=== PATIENT | male | born 1990 ===

== ENCOUNTER 2017-03-06 04:19 | Inpatient (IN) | payer MEDICAID, OTHER ==
[~2017-03-06] VITALS: Ht 182.9 cm; Wt 77.0 kg
[2017-03-06] MEDS ORDERED: Benzocaine-Menthol Lozenge 2/Pkg PO PRN (06:10)
[2017-03-06] MEDS ORDERED: Magnesium Hydroxide 10 mL Oral Concentration PO PRN (06:10)
[2017-03-06] MEDS ORDERED: Alum-Mag Hydrox-Simeth 30 mL Suspension PO PRN (06:10)
--- NOTE | 2017-03-06 06:10 | NUR ---
admit note nursing 11-7 this is a 25 year old male who was brought to [facility] by his mother after making a 7 cm cut to left wrist. he was medically cleared, wound sutured and dressed, evaluated and detained as a danger to self. he has deteriorated over the last 4-5 months with decreased eating and sleeping, delusions about the neighbors, hiding knifes, statements about being . he has recently started risperidone and is seeing dr. drew. has had counseling with [facility] that stopped 6 months ago. recent use of mushrooms, lsd and ecstasy. physical assessment- denies any acute medical/physical injury/need and none is apparent. a/ox3, nkda, vs-wnl, ht=72" ew=791 lbs. dressing on left forearm is intact and without drainage completed the admission process, agreed to no self harm, searched, briefly oriented to the unit/program, given bed 227 and is resting quietly in bed. will be assessed q 15 minutes. silvia
[2017-03-06] MEDS ORDERED: RISP1TAB3 PO (07:03)
--- NOTE | 2017-03-06 13:47 | NUR ---
Nursing Note [id number] Behavior, Mood S/O: Pt has good appetite. Conversation tracking clear & organized with normal rate & rhythm. Affect is slightly sad. Pt states he is "feeling better" today. He is requesting to see the psychiatrist today. Pt showered. Dressing changed on forearm. Davon dry & intact. No s/sx infection. Edges of wound are well approximated. A: Pt appears to be more depressed than he is stating. P: Provide supportive environment. Monitor medications & effects.
--- NOTE | 2017-03-06 13:50 | HP ---
[address] [address] HISTORY AND PHYSICAL PATIENT: RACHAEL GAMA : 1990 MR#: [id number] ADMIT: 03/06/2017 JOB ID: [id number] IDENTIFICATION OF PATIENT: The patient is a 27-year-old male who reportedly was admitted via transfer from [facility] under ANA status due to a significant suicide attempt including laceration to his left forearm. CHIEF COMPLAINT: "I have been feeling more depressed lately, it had come to a crisis point, I am feeling more disconnected from my friends and family." This is per patient report. HISTORY OF PRESENT ILLNESS: As stated above, the patient identified that he was placed on a detainment through the emergency department after self laceration requiring six sutures. He reports that he was struggling with significant suicidal thoughts as well as significant difficulties with internal preoccupation and disorganized thoughts. He indicates that he describes the thoughts almost as if it were Tourette's, and was very apologetic identifying that he was having various racial slurs and negative comments that occur spontaneously. He indicated that he is not that type of person and indicated that it is very alarming. In reviewing his previous history, he reportedly does have a prior history of involvement with an outpatient therapist and is currently involved with a nurse practitioner, Bartolome Ramsey, for medication management. Per report, the patient had indicated to nurses that he had been using mushrooms, LSD and Ecstasy; however on interview with myself, indicated that he had not use so since his early 20s. He does indicate however that he does use moderate amounts of marijuana smoking 3-4 times per week. He indicates that he has been struggling with increasing difficulties with paranoia, delusions about his neighbors, evidently has been struggling with decreased appetite with resultant weight loss, decrease sleep, difficulties with concentration. He recently lost his job and moved back into the family home. 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 He reports that his parents were fine with him moving back in and there were minor adjustments. He indicated that his mother is a high school social studies teacher and that his father is a nurse practitioner involved with family practice and has his own practice in [place]. PAST MEDICAL HISTORY: Substantial for no reported allergies to medications. Medications of current include none. He reports that he was prescribed Risperdal approximately one month ago at 1 mg but indicated that he is no longer taking it. He denies any other medical issues. I have reviewed the record from [facility] and agree with findings. PAST PSYCHIATRIC HISTORY: Substantial for the above information. He denies any prior interventions of hospitalizations. SOCIAL HISTORY: As noted above. The patient lives in the home with the parents. He does have a sibling brother age 24 who also lives in the home environment. He indicates that he has been involved in long-term relationships in the past but nothing of current. He admits to the above marijuana usage. He admits to occasional beer periodically. Abuse history was not reviewed. FAMILY HISTORY: Positive for history of counseling in an uncle and in his mother. He denies any knowledge of medication management. DEVELOPMENTAL HISTORY: The patient indicated that he graduated from [employer] and was pursuing a degree in [employer]. Lived in [facility] for approximately a year and a half and later transferred to [employer] [facility] for school. He indicates that he has not yet obtained his bachelor's. MENTAL STATUS EXAMINATION: General appearance: The patient is very articulate. Maintains good eye contact throughout. Very apologetic in reference to his current disorganization of thought. His speech is of normal tone, frequency, and volume. There is significant latency throughout with appearance of visual tracking. His mood is depressed. His affect is congruent. His thought process shows some evidence of loose and disorganized thinking. He reports feeling as if he has Tourette's of the brain and identified that he is having difficulties with negative perceptual thoughts of racism which is alarming to him. Thought content, he openly admitted to significant suicidal thoughts last evening and indicated that he cut on this wrist. He expresses significant regret and remorse. There is no evidence of homicidal ideation. He denies any active hallucinations. No evidence of delusions but significant paranoia per his own report. He was alert, oriented to time and place, situation. His attention and concentration are fleeting. Memory is intact in the short-term, long-term, recent. Insight and judgment are fair. IMPRESSION: AXIS I: 1. Major depressive disorder, recurrent type with psychotic features. 2. Cannabis use disorder. 3. Rule out substance abuse psychoses. AXIS II: Deferred. AXIS III: None. AXIS IV: Stressors are noted for ineffective coping, significant substance use issues. AXIS V: Global Assessment of Functioning, current 30. PLAN: 1. Recommendations for introductions of Zyprexa scheduled 10 mg q.h.s., Zyprexa Zydis 10 mg q.6 p.r.n. for agitation. 2. Continuation of Vistaril 50 mg q.4 h. p.r.n. 3. Continuation of Ativan 1 mg q.4 h. p.r.n. 4. Recommendations for the patient to sign in on a voluntary basis based on his current presentation. I do feel that he would benefit from continued hospitalization but do not have grounds to pursue commitment hearing. The patient has agreed and staff will be informed to fill out the application accordingly.
[2017-03-06 14:55] VITALS: BP 112/72; PULSE 72; RESP 18
[2017-03-06] MEDS: LORazepam 1 mg Tablet PO PRN (19:41)
[2017-03-06] MEDS: OLANZapine Zydis ODT 5 mg Tablet PO SCH (21:16)
--- NOTE | 2017-03-06 22:22 | NUR ---
nursing:Pt has been cooperative, pleasant and some interactions with his peers; Is fairly logical and linear; When asked about his SA: "Oh that was impulsive and I regretted it after.I was just being egged on in my head...I was just causing alot of problems for my friends and family....I need to get to the point where I'm more in control of my mind...sometimes it tries to pull me off track.." He does deny any recent use of hallucinations: "Not for at least 6 months. It's rare for me to use illegal drugs. " He says he recently was referred to a psychiatrist 3 months ago and started Risperidol but has only been on it briefly and doesn't know if it has helped much. His incision is clean and intact without reddness and he denies any significant pain.
--- NOTE | 2017-03-07 05:12 | NUR ---
nursing, nights, 11-7 s/o- has appeared to sleep after 2114 during q 15 minute assessments. a- no apparent distress. p- monitor behavior/emotional state, quality, times and amount of sleep, use and effect of medication. silvia
--- NOTE | 2017-03-07 09:52 | NUR ---
Nursing Day Pt agitated when lab came for a blood draw this morning. However, he did allow the blood draw. He was able to calm and took morning medications without difficulty. He refused his nicotine patch stating "I don't need it. I don't even smoke." Pt ate breakfast and spending the rest of the morning in bed. Pt remains isolative and unable to tolerate activity on the unit, easily overstimulated. Addendum: 03/07/17 at 0958 by ADELINE SALDIVAR RN ERROR DOCUMENTED ON WRONG PATIENT.
[2017-03-07 10:08] VITALS: BP 109/77; PULSE 69; RESP 16
--- NOTE | 2017-03-07 10:25 | NUR ---
Nursing Day Pt arouses to name. He did not eat breakfast and has remained asleep through the morning. Will continue to monitor mood, behavior and safety on the unit.
--- NOTE | 2017-03-07 15:18 | PCM.PNPSY ---
Subjective Date of Service Mar 07, 2017 Subjective I spent 30 minutes both revealing treatments upon with our clinic team, interviewing the patient and providing supportive/educational psychotherapy. I spent more than 50% of the time counseling the patient. I reviewed the treatment plan with the patient and discuss options available including the potential risks, benefits and side effects. Patient report an improvement in thought organization and stability. Staff report that he has been active and participating well in the one-on-one and group activities. Patient has slept 7 hours and denies any manic or psychotic symptoms on review. Patient still reports mild depressions. Patient admitted that hurting himself was a desperate act of stupidity. He states that since coming back from [place] to [place], the home coming was not as expected. Pt reports that his parents as to 2-3 years ago and that he is not as close as family as before. Patient has not identified any particular trigger that has caused his significant depression and suicidal attempt. Though he did states significant life stressors that has been building inside. The current [facility] political climate has not helped his stress for the past year. Patient does states that he has friends and family he can turn to should he have suicidal ideation. He currently denies any suicidal or homicidal ideation. He denies medication side effects. He was able to identify he medication and what they were used to treat. Current Medications Current Medications Lorazepam 1 mg Q4H PRN PO Last administered on 03/06/17t 19:41; Admin Dose 1 MG ; Start 03/06/17 at 06:10 Olanzapine 10 mg HS PO Last administered on 03/06/17 21:16; Admin Dose 10 MG; Start 03/06/17 at 21:00 Mental Status Exam Appearance: Unkept Attitude: Cooperative Behavior: No unusual behavior Affect: Blunted Mood: Dysthymic Thought Process/Associations: Logical/Sequential Speech Production: Normal Speech Rate: Normal Speech Articulation: Normal Thought Content: Negativistic Danger to Self/Suicidal Ideati: None Danger to Others: None Delusions: Thought Insertion (Denies) Hallucinations: Auditory (Denies), Visual (Denies) Consciousness: Alert Orientation: Person, Place, Date Memory: Grossly Intact Estimate Intellectual Function: Average Basis for IQ estimate: Awareness current events Attention/Concentration & Cogn: Grossly Intact Mental Health Plan Patient is a 27-year-old male with a medical history significant for past polysubstance abuse, currently marijuana, paranoia, and depression presents to the ED with suicidal attempt. Patient has lacerated his right wrist. Currently on a 72.hour ANA. Today, patient denies any suicidal ideation. Prior, patient likely had increasing stress with poor coping skills which led to his suicide attempt. Try to elicit a summary judgment in addition to 2+2. Patient was unable to identify risk factor that led to suicidal attempt. Though he does states having friends and family to call should he does have suicidal ideation. [place] AXIS I: 1. Major depressive disorder, recurrent type with psychotic features. 2. Cannabis use disorder. 3. Rule out substance abuse psychoses. AXIS II: Deferred. AXIS III: None. AXIS IV: Stressors are noted for ineffective coping, significant substance use issues. AXIS V: Global Assessment of Functioning, current 30. Medications Medications to address General Physical Health Zyprexa 10 mg at bedtime Treatments 1. The patient is admitted to the [facility] on a 72 hour ANA 2. The patient will be seen by the treatment team on a daily basis to assess for symptom side effects and response to treatment. 3. The patient will be encouraged to attend group and milieu activities. 4. The patient is currently denying suicidal or homicidal ideation and is not in need of a one-to-one at this time. 5. Continue Zyprexa scheduled 10 mg q.h.s., Zyprexa Zydis 10 mg q.6 p.r.n. for agitation. 6. Continuation of Vistaril 50 mg q.4 h. p.r.n. 7. Continuation of Ativan 1 mg q.4 h. p.r.n. 8. Anticipate length of stay less than 7 days. Shaka Jensen DO Mar 07, 2017 15:18
--- NOTE | 2017-03-07 19:42 | NUR ---
Fitter Helper/Counselor: S: "My dad called me today." O: Patient slept 8.75 hours last night per staff. Patient denies S/I and H/I. He also denies auditory and visual hallucinations. Depression is 0/10 and anxiety is 0/10. When asked his mood, patient stated, "Good and relaxed." This technical report writer spoke with patient's mother, Luisa, with permission of patient, mother was given an update. This technical report writer attempted to call patient's father, Liam, but father provided his work/office number and the office was closed by the time this technical report writer attempted to call father. A: Patient is cooperative, unkept, blunted affect, dysthymic, poor insight, poor judgment. P: Follow the care plan, coordinate with out-patient providers.
[2017-03-07] MEDS: OLANZapine Zydis ODT 5 mg Tablet PO SCH (20:52)
[2017-03-07] MEDS: LORazepam 1 mg Tablet PO PRN (20:53)
--- NOTE | 2017-03-07 21:24 | NUR ---
Observations 00 - 0 Pt affect and mood was isolative, guarded and withdrawn. Pt was pleasant, polite and cooperative when approached. Pt maintained behavior throughout the shift. Pt was unsocial and mostly keeps to himself. Pt attended meals in D.R. and ate 100% of his meals. Pt was in his room and in bed most of the shift. Pt was observed every 15 minutes through the shift as ordered.
--- NOTE | 2017-03-08 06:28 | NUR ---
Nursing Note- Crown Wheel Assembler 7pm to 7am Pt asleep at start of shift, did not get up for snack. Pt woke up to take HS meds. He declined night time Zyprexa stating I took it last night and it made me drowsy all day. Pt reported anxiety 02/27 and requested Ativan 1mg po prn, which he received and went back to sleep with no broken sleep during the night. Monitored pt. q 15 minutes for safety, location, and accountability
[2017-03-08 08:56] LABS: Mean Corpuscular Hemoglobin 29.8 pg (27.0-35.0); Mean Corpuscular Volume 87.8 fL (81-100)
[2017-03-08] MEDS: LORazepam 1 mg Tablet PO PRN ×2 (10:52→17:36)
--- NOTE | 2017-03-08 12:56 | NUR ---
day shift nursing note S/O-"I need information about the meds I am on." Pt. was provided medication information sheets. He would not tell typewriter assembly and parts inspector why he cut his wrist. Left wrist area clean with christi dry and intact without any signs of infection. Pt.stated the area does not hurt unless he lifts something with his wrist. He would not tell typewriter assembly and parts inspector what happened to his wrist and said it was probably in his medical records. He denies hallucinations, SI, HI or depression. He reported he was worried about the cost of being in the hospital. He appears guarded, withdrawn and isolative. He requested and was given 1 mg. of Ativan at 1052 PO prn for anxiety. Pt. denied anxiety however appeared anxious and was diaphoretic. He is pleasant with staff does not interact with his peers. A-Psychosis. Lack of insight. Poor judgment. P-Monitor for safety per protocol. Assess efficacy of meds to decrease psychosis. Encourage engagement with peers.
[2017-03-08] MEDS: OLANZapine Zydis ODT 5 mg Tablet PO PRN (17:36)
--- NOTE | 2017-03-08 17:58 | NUR ---
Observations 0700 - 1900 Pt affect and mood was isolative, guarded and withdrawn. Pt was pleasant, polite and cooperative when approached. Pt maintained behavior throughout the shift. Pt was unsocial and mostly keeps to himself. Pt attended meals in D.R. and ate 100% of his meals. Pt was in his room and in bed most of the shift. Pt was wanting to go home. RN and doctor was notified. Pt played some ping pong with peer and went out on patio to get some fresh air. Pt visited with his Dad during visitation and it appeared to go well. Pt was observed every 15 minutes through the shift as ordered.
[2017-03-08] MEDS: OLANZapine Zydis ODT 5 mg Tablet PO SCH (21:00)
--- NOTE | 2017-03-09 05:58 | NUR ---
nursing, nights, 11-7 s/o- has appeared to sleep after 2100 during q 15 minute assessments. a- no apparent distress. p- monitor behavior/emotional state, quality, times and amount of sleep, use and effect of medication. silvia
[2017-03-09] MEDS: LORazepam 1 mg Tablet PO PRN ×3 (12:05→22:26)
[2017-03-09 14:03] VITALS: BP 119/80; PULSE 86; RESP 16
--- NOTE | 2017-03-09 18:26 | PCM.PNPSY ---
Subjective Date of Service Mar 08, 2017 Subjective Almost 2 hours were spent initially talking with the patient, referring the patient to the [facility] and discussing case and follow-up family meeting. The patient had declined olanzapine stating that he did not need sleeping medications. He further stated that he was "admitted voluntarily and plans to stay with his parents." Today, the patient is requesting to be discharged. He is unable to say why he cut his wrist other than "it was my birthday." He stated he would not harm himself again but still could not say why it occurred in the first place. The patient evidenced significant thought disorder with latency and difficulty answering questions in anything other than superficial terms. We discussed the seriousness of his attempt and the need for appropriate follow-up and medication but the patient stated he has an appointment scheduled for next and does not see the need for further inpatient treatment. The patient was advised that he would be referred to the [facility] who may come to assess him and was advised to discuss his current situation with his parents as to whether they felt he was well enough to return home and the patient responded, "Oh, so I should call them to come pick me up?" Given the seriousness of his attempt and his lack of insight and treatment and the parents report of ongoing delusions, he was referred to the [facility]. He ultimately agreed voluntarily. Sleep: 8.25 hours Appetite: "Quite good" Suicidal and homicidal ideation: Denies Auditory hallucinations: Denies Visual hallucinations: Denies Other Psychotic Symptoms: As above Anxiety: 1-2/10 Depression: 0/10 Current Medications Current Medications Olanzapine 10 mg HS PO Last administered on 03/06/17t 21:16; Admin Dose 10 MG; Start 03/06/17 at 21:00 Mental Status Exam Appearance: Unkept Attitude: Cooperative Behavior: No unusual behavior Affect: Blunted Mood: Dysthymic Thought Process/Associations: Logical/Sequential Speech Production: Normal Speech Rate: Normal Speech Articulation: Normal Thought Content: Negativistic Danger to Self/Suicidal Ideati: None Danger to Others: None Delusions: Thought Insertion (Denies) Hallucinations: Auditory (Denies), Visual (Denies) Consciousness: Alert Orientation: Person, Place, Date Memory: Grossly Intact Estimate Intellectual Function: Average Basis for IQ estimate: Awareness current events Attention/Concentration & Cogn: Grossly Intact Insight: Limited Judgement: Poor Result Diagram: 03/08/1779903/08/17 08 Mental Health Plan Patient is a 27-year-old male with a medical history significant for past polysubstance abuse, currently marijuana, paranoia, and depression presents to the ED with suicidal attempt. Patient has lacerated his right wrist. The patient had been admitted on a 72 hour ANA, no 14 day order was filed and he was converted to a voluntary patient. He has subsequently stopped taking recommended medications and is requesting discharge. He is unable to articulate why he harmed himself or how he would remain safe. He was therefore referred to the [facility]. Given the seriousness of his attempt, his lack of insight, and medication non- adherence in an inpatient and outpatient setting, he is at high risk for impulsive acts which could result in harm to self should he be released before an adequate discharge plan can be formulated. The patient is in need of further inpatient hospitalization and treatment. The patient ultimately agreed with this with [facility] and family intervention. [place] AXIS I: 1. Major depressive disorder, recurrent type with psychotic features versus schizoaffective disorder. 2. Cannabis use disorder. 3. Rule out substance induced psychoses. AXIS II: Deferred. AXIS III: None. AXIS IV: Psychosocial stressors include limited insight, poor coping skills, and significant substance use. AXIS V: Global Assessment of Functioning, current 30. Treatments 1. The [facility] on a 72 hour ANA and is now a voluntary patient. 2. The patient will be seen by the treatment team on a daily basis to assess for symptom side effects and response to treatment. 3. The patient will be encouraged to attend group and milieu activities. 4. The patient is currently denying suicidal or homicidal ideation and is not in need of a one-to-one at this time. 5. Continue Zyprexa scheduled 10 mg q.h.s., Zyprexa Zydis 10 mg q.6 p.r.n. for agitation. 6. Continuation of Vistaril 50 mg q.4 h. p.r.n. 7. Continuation of Ativan 1 mg q.4 h. p.r.n. 8. The patient was referred to the designated mental health professional but subsequently agreed to remain as a voluntary patient. 9. Anticipate length of stay less than 7 days. Eusebio Gambino MD Mar 08, 2017 19:05
--- NOTE | 2017-03-09 18:31 | PCM.PNPSY ---
Subjective Date of Service Mar 09, 2017 Subjective The patient was noted to be playing plan just prior to interview. He was reporting that he was not having any difficulty with medications and that he was "getting my focus back without distractions." He would not clarify with distractions were but appeared to indicate they were internal thoughts. He denied side effects from medications. Sleep: 9 hours. "Sound" Appetite: Normal, "getting my appetite back." Suicidal and homicidal ideation: He denied both stating he would not as "you are part of what you care about." Auditory hallucinations: Denies Visual hallucinations: Denies Other Psychotic Symptoms: Denies thought control Anxiety: "Really really low" 1-10/28 Depression: 0/10 Mental Status Exam Vital Signs Vital Signs Date Time Temp Pulse Resp B/P Pulse Ox O2 Delivery O2 Flow Rate FiO2 03/09/17 14:03 36.3 86 16 119/80 Appearance: Unkept Attitude: Cooperative Behavior: No unusual behavior Affect: Restricted Mood: Dysthymic Thought Process/Associations: Logical/Sequential Speech Production: Normal Speech Rate: Normal Speech Articulation: Normal Thought Content: Negativistic Danger to Self/Suicidal Ideati: None Danger to Others: None Delusions: Thought Insertion (Denies) Hallucinations: Auditory (Denies), Visual (Denies) Consciousness: Alert Orientation: Person, Place, Date Memory: Grossly Intact Estimate Intellectual Function: Average Basis for IQ estimate: Awareness current events Attention/Concentration & Cogn: Grossly Intact Insight: Limited Judgement: Limited Result Diagram: 03/08/17 0800 03/08/17 0800 Mental Health Plan Patient is a 27-year-old male with a medical history significant for past polysubstance abuse, currently marijuana, paranoia, and depression presents to the ED with suicidal attempt. Patient has lacerated his right wrist. The patient had been admitted on a 72 hour ANA, no 14 day order was filed and he was converted to a voluntary patient. He has subsequently stopped taking recommended medications and is requesting discharge. He is unable to articulate why he harmed himself or how he would remain safe. He was therefore referred to the [facility]. The patient subsequently agreed to stay as a voluntary. He reports that his symptoms have improved and she is thinking more clearly with medication. He reported having a good visit with family. We discussed discharge early next week with outpatient follow-up and the patient was agreeable. [place] AXIS I: 1. Psychotic disorder unspecified versus schizoaffective disorder. 2. Cannabis use disorder. AXIS II: Deferred. AXIS III: None. AXIS IV: Psychosocial stressors include limited insight, poor coping skills, and significant substance use. AXIS V: Global Assessment of Functioning, current 35. Medications Medications to address General Physical Health Zyprexa 10 mg at bedtime Treatments 1. The patient is admitted to the [facility] initially on a 72 hour ANA and is now a voluntary patient. 2. The patient will be seen by the treatment team on a daily basis to assess for symptom side effects and response to treatment. 3. The patient will be encouraged to attend group and milieu activities. 4. The patient is currently denying suicidal or homicidal ideation and is not in need of a one-to-one at this time. 5. Continue Zyprexa scheduled 10 mg q.h.s., Zyprexa Zydis 10 mg q.6 p.r.n. for agitation. 6. Continuation of Vistaril 50 mg q.4 h. p.r.n. 7. Continuation of Ativan 1 mg q.4 h. p.r.n. 8. Anticipate length of stay less than 7 days. Eusebio Gambino MD Mar 09, 2017 18:31
--- NOTE | 2017-03-09 18:37 | NUR ---
Observations [id number] Pt friendly, cooperative, and communicative with peers and staff. He slept much of the morning, but did attend Community Meeting and participated in group activities. Pt spent much of the afternoon playing the piano. Pt attended all meals, eating 100%. Pt did not shower on this shift. He was observed every 15 minutes of shift as directed.
--- NOTE | 2017-03-09 20:04 | NUR ---
Nurses Note Evening Patient has been occupying himself with playing the piano, napping on and off and visiting with his father. Patients' affect has been brighter but has had periods of increased anxiety requiring Ativan 1mg at 1750 with lessened anxiousness. Patient was eager to hear learn about his scheduled medications purpose and effects. Will maintain q 15min for safety and support. Addendum: 03/09/17 at 2011 by DEEDEE TOUSSAINT RN Amended: Links added. Addendum: 03/09/17 at 2227 by ADELINE SALDIVAR RN Prn Ativan 1mg po requested and received prior to bed for felt anxiety. Will assess medication efficacy through the night.
[2017-03-09] MEDS: OLANZapine Zydis ODT 5 mg Tablet PO SCH (21:22)
--- NOTE | 2017-03-10 05:05 | NUR ---
Nursing Note Learning Manager 7pm to 7am Pt asleep at start of shift and remained asleep for the duration of the shift Monitor pt q 15 minutes for safety, location and accountability
[2017-03-10 11:45] VITALS: BP 126/75; PULSE 94; RESP 16
--- NOTE | 2017-03-10 13:11 | NUR ---
nursing note day shift S)"I was feeling great this morning but now I am getting more anxious, I want to stay calm" O) pt requesting anti-anxiety medication states he wants to do well today, 01/27 anxiety lowering after PRN medication 09/27, states is very happy he is playing piano "its has been one of my fears" reports that he thinks he can go up on his medication "I believe it is at a low dose" ate meals, took shower, groomed in own clothes A) cooperative, requested medication for anxiety, pleasant P) monitor mediation effectiveness and encourage participation in treatment
[2017-03-10] MEDS: LORazepam 1 mg Tablet PO PRN ×2 (16:30→22:00)
--- NOTE | 2017-03-10 16:32 | NUR ---
Calender Worker Helper/Counselor S: "Can we go outside soon?" O: Patient denies any SI or HI, no AVH, stated that his anxiety was lower than this morning, and no rating on depression. A: Patient has been out on the milieu, and has been in the piano room playing the piano. He has been friendly with staff and other patients. P: Follow care plan and coordinate with outpatient providers.
--- NOTE | 2017-03-10 16:51 | PCM.PNPSY ---
Subjective Date of Service Mar 10, 2017 Subjective The patient reports that olanzapine has been effective in helping him to relax. He states he is less worried now about "who likes me and who does not. It makes me want to try to play the piano... it is easier to block out other thoughts." He reported some concern that when he returns to his neighborhood the neighbors will be "shouting at me again." He also reported walking by neighbors who stated "we do not do that here." He believes they are talking about smoking. The patient was advised to be aware that this may be a hallucination and to check with others with him if they hear the same thing or to look at their mouth to see if it corresponded to the words being spoken. The patient thought that was a good idea. He denies side effects. The patient showered today and no longer smells strongly of body odor. Sleep: 6.25 hours sleep, "no more hellish dreams like at home." Appetite: "Good" Suicidal and homicidal ideation: Denies Auditory hallucinations: Denies Visual hallucinations: Denies Other Psychotic Symptoms: As above Anxiety: 0/10 Depression: 0/10 Mental Status Exam Vital Signs Vital Signs Date Time Temp Pulse Resp B/P Pulse Ox O2 Delivery O2 Flow Rate FiO2 03/10/17 11:45 36.3 94 16 126/75 Appearance: Neat/well groomed Attitude: Pleasant, Cooperative Behavior: No unusual behavior Affect: Well Modulated/Appropriate Mood: Anxious (mild) Thought Process/Associations: Logical/Sequential Speech Production: Normal Speech Rate: Normal Speech Articulation: Normal Thought Content: Appropriate, Perseveration (mild) Danger to Self/Suicidal Ideati: None Danger to Others: None Hallucinations: Auditory (Denies), Visual (Denies) Consciousness: Alert Orientation: Person, Place, Date, Situation Memory: Grossly Intact Estimate Intellectual Function: Average Basis for IQ estimate: Awareness current events Attention/Concentration & Cogn: Grossly Intact Insight: Limited Judgement: Limited Result Diagram: 03/08/1779903/08/17799 Mental Health Plan Patient is a 27-year-old male with a medical history significant for past polysubstance abuse, currently marijuana, and presents to the ED with paranoia, depression and is post-suicide attempt with a laceration to his right wrist. The patient had been admitted on a 72 hour ANA, no 14 day order was filed and he was converted to a voluntary patient. He subsequently stopped taking recommended medications and was requesting discharge. He was unable to articulate why he harmed himself or how he would remain safe. He was therefore referred to the [facility]. The patient subsequently agreed to stay as a voluntary. He continues to report that his symptoms have improved and that he is thinking more clearly with medication. We discussed discharge later this week with outpatient follow-up and the patient was agreeable. [place] AXIS I: 1. Psychotic disorder unspecified versus schizoaffective disorder. 2. Cannabis use disorder. AXIS II: Deferred. AXIS III: None. AXIS IV: Psychosocial stressors include limited insight, poor coping skills, and significant substance use. AXIS V: Global Assessment of Functioning, current 35. Medications Medications to address General Physical Health Zyprexa 10 mg at bedtime Treatments 1. [facility] and is now a voluntary patient. 2. The patient will be seen by the treatment team on a daily basis to assess for symptom side effects and response to treatment. 3. The patient will be encouraged to attend group and milieu activities. 4. The patient is currently denying suicidal or homicidal ideation and is not in need of a one-to-one at this time. 5. Continue Zyprexa scheduled 10 mg q.h.s., Zyprexa Zydis 10 mg q.6 p.r.n. for agitation. 6. Continuation of Vistaril 50 mg q.4 h. p.r.n. 7. Continuation of Ativan 1 mg q.4 h. p.r.n., may need to reduce frequency. 8. Anticipate length of stay less than 7 days. Eusebio Gambino MD Mar 10, 2017 16:34
--- NOTE | 2017-03-10 19:14 | NUR ---
Observations 0900 - 2130 Pt affect and mood was friendly, social. Pt was pleasant, polite and cooperative when approached. Pt maintained behavior throughout the shift. Pt was social with staff and peers. Pt attended meals in D.R. and ate 100% of his meals. Pt was out of his room most of the shift.Pt visited with his mom during visitation, played ping pong with her and it appeared to go well. Pt played the piano during free time and stated that he is enjoying this. Pt was observed every 15 minutes through the shift as ordered.
[2017-03-10] MEDS: OLANZapine Zydis ODT 5 mg Tablet PO SCH (21:43)
--- NOTE | 2017-03-10 22:26 | NUR ---
Nurse Note Evening Shift 3pm to 11pm: Pt has been playing the piano and coloring since the beginning of the shift. Pt has been calm and keeping mostly to himself, but pleasant and appropriate when talking. Pt requested antianxiety meds at 0400 stating he was feeling anxious 8/10, but after talking, Pt stated he was feeling less anxious. Pt had a family member visit in the evening, then visited with other pts in the milieu. Pt monitored q 15 minutes for safety, location and accountability.
--- NOTE | 2017-03-11 03:49 | NUR ---
Observations 1900 to 0700 Pt attended and participated in wrap up group. Pt ate a snack. Pt was visited by mother at start of shift and they were observed playing ping pong. Pt was social with peers and played piano during the evening. Pt is pleasant and cooperative. Pt maintained behavioral control and showed no signs of abnormal behavior. Pt appeared asleep at 2300 and has remained asleep. Pt respirations were observed when asleep. Staff completed 15 min close observations as ordered.
--- NOTE | 2017-03-11 05:01 | NUR ---
Nursing Note Wage Conciliator 11pm to 7am Pt asleep at start of shift and remained asleep the duration of the shift. No issues observed or reported. Pt monitored q 15 minutes for safety, location and accountability
[2017-03-11] MEDS: OLANZapine Zydis ODT 5 mg Tablet PO PRN (12:26)
--- NOTE | 2017-03-11 13:48 | NUR ---
nurses note dayshift O)pt slept until lunch time today, showered ate meal, states he is worried he would get anxious and requested PRN anti-anxiety and Zyprexa " I want to make sure I don't get mad" playing piano out walking hallways, denies anxiety this afternoon, incision CDI except one staple is missing that he said he removed because it was loose, area is closed and healing well, staple given to this commercial lines underwriter, denies thoughts of self harm " I think music is helping me" A) cooperative, medication compliant, denies SI or depression P) monitor medication effectiveness, and monitor for safety Addendum: 03/11/17 at 1456 by WENDY KING RN steri strip placed over missing staple area CDI
[2017-03-11] MEDS: LORazepam 1 mg Tablet PO PRN (14:31)
--- NOTE | 2017-03-11 14:36 | PCM.DIMED ---
Discharge Instructions Date of Service Mar 11, 2017 Dates of Hospitalization Mar 06, 2017 at 05:52 Discharge Diagnosis Discharge Diagnosis AXIS I: 1. Psychotic disorder unspecified versus schizoaffective disorder. 2. Depressive disorder unspecified 3. Cannabis use disorder. AXIS II: Deferred. AXIS III: None. AXIS IV: Psychosocial stressors include limited insight, poor coping skills, and significant substance use. AXIS V: Global Assessment of Functioning, current 45. Test Results Test Results CBC Test 03/08/17 08:00 White Blood Count 6.4th/mm3 (3.8-10.1) Red Blood Count 4.83mil/mm3 (4.40-5.80) Hemoglobin 14.4g/dL (13.8-17.2) Hematocrit 42.4% (41.0-50.0) Mean Corpuscular Volume 87.8fL (81-100) Mean Corpuscular Hemoglobin 29.8pg (27.0-35.0) Mean Corpuscular Hemoglobin Concent 34.0% (32.0-37.0) Red Cell Distribution Width 13.0% (12.3-15.4) Platelet Count 249bil/L (150-400) CMP Test 03/08/17 08:00 Sodium Level 145mEq/L Potassium Level 4.6mEq/L Chloride Level 107mEq/L Carbon Dioxide Level 25mmol/L Blood Urea Nitrogen 14mg/dL Creatinine 0.77mg/dL Estimat Glomerular Filtration Rate 127mL/min Glucose Level 87mg/dL Calcium Level 9.7mg/dL Total Bilirubin 0.8mg/dL Aspartate Amino Transf (AST/SGOT) 14U/L Alanine Aminotransferase (ALT/SGPT) 12U/L Alkaline Phosphatase 67U/L Ammonia 59ug/dL Total Protein 7.1g/dL Albumin 4.6g/dL Diet Discharge Diet: No restrictions Activity Discharge Activity: No restrictions Patient Instructions Patient Instructions Should you have any thoughts of harming yourself or others, please call the crisis line, your provider, 911, or go to the nearest Emergency Department. Do not change or discontinue your medications without discussing with your provider. You have been given a prescription for 30 days supply of your new medication Follow-up plan Provider Erick Almodovar date/time per counselor instruction [facility], [address] [place] [address] Eusebio Gambino MD Mar 11, 2017 14:36
[2017-03-11] MEDS ORDERED: HYDR50CA3 PO (14:38)
[2017-03-11] MEDS ORDERED: OLAN10TA32 PO (14:38)
[2017-03-11] MEDS ORDERED: LORA-303 PO (14:38)
--- NOTE | 2017-03-11 14:47 | PCM.DC.MED ---
Discharge Summary Date of Service Mar 11, 2017 Dates of Hospitalization Date of Hospital Admission Mar 06, 2017 at 05:52 Date of Discharge: Mar 11, 2017 Providers: Admitting Physician: Jordi Gamez MD Primary Care Physician: Nopcarmen Attending Physician: Jordi Gamez MD Diagnosis at Time of Discharge Diagnosis at Time of Discharge AXIS I: 1. Psychotic disorder unspecified versus schizoaffective disorder. 2. Depressive disorder unspecified 3. Cannabis use disorder. AXIS II: Deferred. AXIS III: None. AXIS IV: Psychosocial stressors include limited insight, poor coping skills, and significant substance use. AXIS V: Global Assessment of Functioning, current 45. Brief History Per Dr. Urrutia H&P: IDENTIFICATION OF PATIENT: The patient is a 27-year-old male who reportedly was admitted via transfer from [facility] under ANA status due to a significant suicide attempt including laceration to his left forearm. CHIEF COMPLAINT: "I have been feeling more depressed lately, it had come to a crisis point, I am feeling more disconnected from my friends and family." This is per patient report. HISTORY OF PRESENT ILLNESS: As stated above, the patient identified that he was placed on a detainment through the emergency department after self laceration requiring six sutures. He reports that he was struggling with significant suicidal thoughts as well as significant difficulties with internal preoccupation and disorganized thoughts. He indicates that he describes the thoughts almost as if it were Tourette's, and was very apologetic identifying that he was having various racial slurs and negative comments that occur spontaneously. He indicated that he is not that type of person and indicated that it is very alarming. In reviewing his previous history, he reportedly does have a prior history of involvement with an outpatient therapist and is currently involved with a nurse practitioner, Bartolome Ramsey, for medication management. Per report, the patient had indicated to nurses that he had been using mushrooms, LSD and Ecstasy; however on interview with myself, indicated that he had not use so since his early 20s. He does indicate however that he does use moderate amounts of marijuana smoking 3-4 times per week. He indicates that he has been struggling with increasing difficulties with paranoia, delusions about his neighbors, evidently has been struggling with decreased appetite with resultant weight loss, decrease sleep, difficulties with concentration. He recently lost his job and moved back into the family home. 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 He reports that his parents were fine with him moving back in and there were minor adjustments. He indicated that his mother is a highway truck driver and that his father is a nurse practitioner involved with family practice and has his own practice in [place]. Hospital Course The patient was admitted to the mental health unit. The patient was initially detained on a 72 hour hold, but was agreeable to inpatient hospitalization and so was converted to a voluntary status. The patient subsequently stopped taking olanzapine which had been prescribed for psychosis and mood. On FridayMarch 08, the patient requested discharge. He was unable to say why he cut his wrist other than it was "my birthday." He stated he would not harm himself again but still could not say why it occurred in the first place. The patient evidenced significant thought disorder with latency and difficulty answering questions in anything other than superficial terms. We discussed the seriousness of his attempt and the need for appropriate follow-up and medication but the patient stated he has an appointment scheduled for next and does not see the need for further inpatient treatment. The patient was advised that he would be referred to the [facility] who may come to assess him and was advised to discuss his current situation with his parents as to whether they felt he was well enough to return home and the patient responded, "Oh, so I should call them to come pick me up?" The patient was subsequently seen by the [facility] with his father present and he agreed to stay in the hospital and take prescribed medications and so was not detained. The patient reported a significant improvement in his thought processes and he felt that things which have bothered him such as bad thoughts were not so bothersome. He also had improved clarity of thought. The patient was still concerned that neighbors may yell at him upon his return to his father's apartment building. It appeared that these may be auditory hallucinations or distortions but this could not be said with certainty. He was advised to check with others when he heard auditory unusual comments. On the day of discharge he stated that he was "just fine" and denied any side effects to medications. He stated that it was easier to focus. Sleep was reported as "feeling refreshed in the morning." 7 hours per staff. Appetite was not reported as "normal." He reported his anxiety was "pretty low" and he reported his depression as "some vestiges of depression in my head." He denied auditory or visual hallucinations, paranoia, and any thoughts, intent, or plan of hurting himself or others. There was some questionable insight when he stated that he felt the olanzapine made him too drowsy at night and implied that he may not take it. We discussed potentially reducing the dose and staying a little longer and he stated, "no medications are fine. I will take them as prescribed by my doctor." Exam Vital Signs (Last) Date Time Temp Pulse Resp B/P Pulse Ox O2 Delivery O2 Flow Rate FiO2 03/10/17 11:45 36.3 94 16 126/75 Exam Discharge Mental Status Exam Appearance: Neat/well groomed Attitude: Pleasant, Cooperative Behavior: No unusual behavior Affect: Well Modulated/Appropriate Mood: Anxious (mild) Thought Process/Associations: Logical/Sequential Speech Production: Normal Speech Rate: Normal Speech Articulation: Normal Thought Content: Appropriate Danger to Self/Suicidal Ideation: None Danger to Others: None Hallucinations: Auditory (Denies), Visual (Denies) Consciousness: Alert Orientation: Person, Place, Date, Situation Memory: Grossly Intact Estimate Intellectual Function: Average Basis for IQ estimate: Awareness current events Attention/Concentration & Cognition: Grossly Intact Insight: Fair Judgement: Fair Test 03/08/17 08:00 White Blood Count 6.4th/mm3 (3.8-10.1) Red Blood Count 4.83mil/mm3 (4.40-5.80) Hemoglobin 14.4g/dL (13.8-17.2) Hematocrit 42.4% (41.0-50.0) Mean Corpuscular Volume 87.8fL (81-100) Mean Corpuscular Hemoglobin 29.8pg (27.0-35.0) Mean Corpuscular Hemoglobin Concent 34.0% (32.0-37.0) Red Cell Distribution Width 13.0% (12.3-15.4) Platelet Count 249bil/L (150-400) Sodium Level 145mEq/L (134-144) Potassium Level 4.6mEq/L (3.5-5.2) Chloride Level 107mEq/L (97-108) Carbon Dioxide Level 25mmol/L (18-29) Blood Urea Nitrogen 14mg/dL (6-20) Creatinine 0.77mg/dL (0.76-1.27) Estimat Glomerular Filtration Rate 127mL/min (>59) Glucose Level 87mg/dL (60-99) Calcium Level 9.7mg/dL (8.5-10.1) Total Bilirubin 0.8mg/dL (0.0-1.2) Aspartate Amino Transf (AST/SGOT) 14U/L (0-50) Alanine Aminotransferase (ALT/SGPT) 12U/L (0-44) Alkaline Phosphatase 67U/L (25-150) Ammonia 59ug/dL (18-53) Total Protein 7.1g/dL (6.4-8.4) Albumin 4.6g/dL (3.4-5.0) Discharge Medications Discharge Medications Olanzapine ODT (Olanzapine ODT) 10 Mg Tablet 10 MG PO HS Prescribed by: SACHA GAMBINO MD As needed Hydroxyzine Pamoate (HydrOXYzine Pamoate) 50 Mg Capsule 50 MG PO QID PRN PRN FOR ANXIETY,AGIT, OR INSOMNIA Prescribed by: SACHA GAMBINO MD Lorazepam (Ativan) 1 Mg Tablet 1 MG PO BID PRN PRN SEE INSTRUCTIONS Prescribed by: SACHA GAMBINO MD Followup Plan Disposition: The patient is discharged into the care of his family. The patient verbally consented to take the prescribed medications. The patient verbally expressed understanding of the risks, benefits, alternative treatment options, and risks of not taking the prescribed medication. The patient verbally expressed understanding of the medication instructions, that he will adhere to the prescribed medication, and that he will go to all aftercare scheduled appointments. Follow-up plan Provider Erick Almodovar standing appointment per report, date/time per counselor instruction [facility], [address] [place] [address] Discharge Diet: No restrictions Discharge Activity: No restrictions Patient Instructions Should you have any thoughts of harming yourself or others, please call the crisis line, your provider, 911, or go to the nearest Emergency Department. Do not change or discontinue your medications without discussing with your provider. You have been given a prescription for 30 days supply of your new medication Sacha Gambino MD Mar 11, 2017 14:47
--- NOTE | 2017-03-11 15:31 | NUR ---
Obs Dayshift Pt is calm, appropriate and looking for things to do. Pt spends time on the piano, ping pong, and doing art projects w/ peers in group room. Going to DC to mom this evening, pt remains calm, appropriate and reasonable. Good eye contact and co-operative w/ staff. Good ADL's, Good meals
--- NOTE | 2017-03-11 16:10 | NUR ---
Senior Web Applications Developer/Counselor S:"It's easier to focus and to ignore things that are bothersome." O: Patient denies any SI or HI, no AVH, anxiety and depression are low. A: Patient is being discharged today, and will be picked up by his mom. He is in the care of Dr Bartolome Almodovar with [facility], and states he has weekly appts. Case management left multiple messages in regards to verifying appts, and patient's mother has been notified to follow up for a confirmed appt time. Patient will be provided with all necessary discharge paperwork. P: Follow discharge plan.
--- NOTE | 2017-03-11 17:30 | NUR ---
Nurses Discharge Note Patient discharged to home will all belongings,prescriptions faxed to his pharmacy and hard scripts given to him. Medications and precautions regarding marijuana and alcohol discussed with patient and importance of follow-up. Patient was receptive to the information with a calm cheerful mood. Patients' mother was included in the medication review. Addendum: 03/11/17 at 1817 by DEEDEE TOUSSAINT RN Amended: Links added.
== END 2017-03-11 17:30 | disposition home or self-care (01) | DRG 885 ==
LOC: MHC 05:52
PROVIDERS: ADMIT Psychiatry & Neurology Psychiatry; ATTEND Psychiatry & Neurology Psychiatry
DX: F29 Unspecified psychosis not due to a substance or known physiological condition (principal); F32.9 Major depressive disorder, single episode, unspecified; F12.90 Cannabis use, unspecified, uncomplicated